=== PATIENT | male | born 1980 | race Hispanic/Latino ===

== ENCOUNTER 2018-12-31 17:32 | Emergency (ER) | payer OTHER ==
[~2018-12-31] VITALS: Ht 177.8 cm; Wt 70.3 kg
[~2018-12-31 17:32] MED LIST: LEVAQUIN500 MG PO
--- OUTSIDE RECORDS SUMMARY | 2018-12-31 17:36 | XMS REPORT ---
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 (14), Lipid Daly ... - Serology hepatitis C antibody, serum 0.2 0.0-0.9 Lab Report: CD4/CD8 Ratio Profile, Comp. Metabolic Panel (14), Lipid Daly ... - Chemistry absolute CD8 1432 512-874 4279/07/19 Absolute Neutrophils 2.1 X10E3/UL 10*3/uL 1.4-7.0 Lab Report: UA/M w/rflx Culture, Routine, Microscopic Examination, UA/M ... - Urinalysis bilirubin, urine Negative Negative Lab Report: CD4/CD8 Ratio Profile, Comp. Metabolic Panel (14), Lipid Daly ... - Chemistry estradiol, serum 31.8 pg/mL 7.6-42.6 LDL cholesterol, serum 56 mg/dL 0-99 Office Visit: Adult Followup #Tx1 - Lab Non-nucleotide Reverse Transcriptase Inhibitors K103N, P225PH Lab Report: CD4/CD8 Ratio Profile, Comp. Metabolic Panel (14), Lipid Daly ... - Chemistry albumin/globulin ratio, serum 1.0 1.2-2.2 cholesterol, serum 106 mg/dL 100-199 Lab Report: Chlamydia/GC Amplification - Lab chlamydia DNA probe Negative Negative Lab Report: UA/M w/rflx Culture, Routine, Microscopic Examination, UA/M ... - Urinalysis appearance, urine Clear Clear Lab Report: CD4/CD8 Ratio Profile, Comp. Metabolic Panel (14), Lipid Daly ... - Chemistry aspartate aminotransferase (SGOT), serum 33 U/L 0-40 Lab Report: CD4/CD8 Ratio Profile, Comp. Metabolic Panel (14), Lipid Daly ... - Hematology red blood cell distribution width 14.4 % 12.3-15.4 Lab Report: UA/M w/rflx Culture, Routine, Microscopic Examination, UA/M ... - Urinalysis urinalysis, microscopic examination MICRON Lab Report: CD4/CD8 Ratio Profile, Comp. Metabolic Panel (14), Lipid Daly ... - Chemistry immature granulocytes, percentage of total cells, blood 0 % Not Estab. 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 Metabolic Panel (14), Lipid Daly ... - Hematology hematocrit, blood 37.7 % 37.5-51.0 basophils as percent of blood leukocytes 0 % Not Estab. Lab Report: CD4/CD8 Ratio Profile, Comp. Metabolic Panel (14), Lipid Daly ... - Chemistry CD4/CD8 ratio 0.23 0.92-3.72 carbon dioxide, venous blood 23 mmol/L 20-29 Lab Report: UA/M w/rflx Culture, Routine, Microscopic Examination, UA/M ... - Chemistry nitrate, urine Negative Negative Lab Report: CD4/CD8 Ratio Profile, Comp. Metabolic Panel (14), Lipid Daly ... - Chemistry alanine aminotransferase (SGPT), serum 24 U/L 0-44 Lab Report: CD4/CD8 Ratio Profile, Comp. Metabolic Panel (14), Lipid Daly ... - Hematology mean corpuscular hemoglobin, RBC 30.1 pg 26.6-33.0 hemoglobin, blood 12.7 g/dL 13.0-17.7 T-suppressor cells (CD8) as percent of blood lymphocytes 68.2 % 12.0-35.5 Lab Report: UA/M w/rflx Culture, Routine, Microscopic Examination, UA/M ... - Urinalysis glucose, urine, semiquantitative Negative Negative Lab Report: CD4/CD8 Ratio Profile, Comp. Metabolic Panel (14), Lipid Daly ... - Hematology basophil count, absolute 0.0 x10E3/uL 0.0-0.2 Lab Report: CD4/CD8 Ratio Profile, Comp. Metabolic Panel (14), Lipid Daly ... - Chemistry testosterone, serum, free 4.8 pg/mL 8.7-25.1 Lab Report: CD4/CD8 Ratio Profile, Comp. Metabolic Panel (14), Lipid Daly ... - Hematology eosinophils as percent of blood leukocytes 1 % Not Estab. Lab Report: CD4/CD8 Ratio Profile, Comp. Metabolic Panel (14), Lipid Daly ... - Chemistry blood glucose, random 95 mg/dL 65-99 Lab Report: CD4/CD8 Ratio Profile, Comp. Metabolic Panel (14), Lipid Daly ... - Hematology T-helper cells (CD4) count 332 /UL uL 359-1519 Office Visit: Adult Followup #Tx1 - Lab Nucleotide Reverse transcriptase inhibitor none Lab Report: CD4/CD8 Ratio Profile, Comp. Metabolic Panel (14), Lipid Daly ... - Hematology platelet count 193 X10E3/UL 10*3/mm3 150-379 Lab Report: UA/M w/rflx Culture, Routine, Microscopic Examination, UA/M ... - Urinalysis ketones, urine, by test strip Negative Negative Encounters Date Encounter Provider Code Facility 16:23:56 CDT Est Patient Detailed - 90039 Shannan Roman MD CPT-26757 [facility] 16:06:31 CDT Est Patient Detailed - 28690 Shannan Roman MD CPT-87308 [facility] 09:35:12 [employer] Est Patient Detailed - 09864 Shannan Roman MD CPT-87035 [facility] 19:04:23 CDT Est Patient Detailed - 49494 Shannan Roman MD CPT-88710 [facility] 10:09:05 CDT Est Patient Exp Problem - 78838 Shannan Roman MD CPT-76202 [facility] 16:08:26 CDT Est Patient Detailed - 82590 Elaine Leos MD [facility]-79166 [facility] 17:07:13 [employer] Est Patient Exp Problem - 27589 Shannan Roman MD CPT-48184 [facility] 10:21:39 [employer] Est Patient Exp Problem - 16733 Shannan Roman MD CPT-39782 [facility] 16:45:41 [employer] Est Patient Exp Problem - 17928 Caleb Hopkins MD CPT-09600 [facility] 13:12:05 CDT Est Patient Exp Problem - 24312 Shannan Roman MD CPT-07027 [facility] 15:52:23 CDT Ofc Vst, Est Level III Elaine Leos MD CPT-77416 [facility] 11:21:35 CDT Ofc Vst, Est Level III Guillermo Schaeffer MD CPT-47764 [facility] 16:05:05 CDT Ofc Vst, Est Level III Shannan Roman MD CPT-14095 [facility] 14:58:12 CDT Ofc Vst, Est Level III Shannan Roman MD CPT-04334 [facility] 15:16:45 [employer] Ofc Vst, Est Level III Guillermo Schaeffer MD CPT-79664 [facility] 09:14:38 CDT Ofc Vst, Est Level III Shannan Roman MD CPT-73778 [facility] 12:54:41 CDT Ofc Vst, Est Level III Shannan Roman MD CPT-92619 [facility] 12:20:25 [employer] Ofc Vst, Est Level III Shannan Roman MD CPT-81548 [facility] 09:45:42 [employer] Ofc Vst, Est Level II Vivian Armstrong LVN CPT-92777 [facility] 13:02:37 CDT Ofc Vst, Est Level III Shannan Roman MD CPT-81787 [facility] 10:19:40 CDT Ofc Vst, Est Level II Vivian Armstrong PNEUMATIC TUBE OPERATOR CPT-74343 [facility] Procedures Code Procedure Name Date Entry Date Standard Description CPT-71505 Handling of specimen for transfer 16:06:32 CDT CPT-58645 Venipuncture 16:06:32 CDT CPT-HE001 Health Education/Supportive Counseling 10:50:41 CDT CPT-36245 Xray - Chest - PA & Lat - InHouse 08:28:27 CDT CPT-36090 INFLUENZA VACCINE QUADRIVALENT 3 YRS PLUS IM 19:04:24 CDT CPT-74935 Admin of Vaccine - Injection - 1 19:04:24 CDT CPT-09963 TDAP 17:07:24 [employer] CPT-15713 INFLUENZA VACCINE QUADRIVALENT 3 YRS PLUS IM 17:07:24 [employer] CPT-19539 Admin of Vaccine - Injection - Each Add'l 17:07:23 [employer] CPT-43917 Admin of Vaccine - Injection - 1 17:07:23 [employer] CPT-55163 Est Patient Intermediate Opt - 34909 13:50:39 CDT CPT-93023 Influenza - Adult - Injection 13:12:24 CDT CPT-63281 Admin of Vaccine - Injection - 1 13:12:24 CDT CPT-27496 Xray - Spine Thoracic - InHouse 14:35:47 CDT CPT-50570 Handling of specimen for transfer 10:04:23 CDT CPT-98746 Venipuncture 10:04:23 CDT CPT-88177 Dispensing Visit (UNLIVSTED OPHTHALMOLOGICAL SERVICE/PROCEDURE) 14:34:42 CDT CPT-87280 Est Patient Intermediate Opt - 87378 14:08:27 CDT CPT-76110 Est Patient Intermediate Opt - 53845 13:40:05 CDT CPT-77072 Influenza - Adult - Injection 16:05:05 CDT CPT-90135 Admin of Vaccine - Injection - 1 16:05:05 CDT CPT-30964 Handling of specimen for transfer 14:42:48 CDT CPT-12912 Venipuncture 14:42:48 CDT CPT-53374 Prevnar (PCV13) IM 14:58:42 CDT CPT-54794 Hepatitis B - Adult 14:58:42 CDT CPT-24018 Admin of Vaccine - Injection - Each Add'l 14:58:42 CDT CPT-80455 Admin of Vaccine - Injection - 1 14:58:42 CDT CPT-75211 Dispensing Visit (UNLIVSTED OPHTHALMOLOGICAL SERVICE/PROCEDURE) 14:04:04 [employer] CPT-28507 Est Patient Intermediate Opt - 16229 15:31:31 [employer] CPT-49751 Influenza - Adult - Injection 12:20:25 [employer] CPT-61541 Admin of Vaccine - Injection - 1 12:20:25 [employer]
--- OUTSIDE RECORDS SUMMARY | 2018-12-31 17:36 | XMS REPORT ---
Author Author [facility] Address Unknown Phone Unavailable Care Team Providers Care Billing Clinician Name Role Phone Unavailable Unavailable Payers Payer Name Policy Type Policy Number Effective Date Expiration Date Problems This patient has no known problems. Allergies, Adverse Reactions, Alerts Allergy Name Allergy Type Status Severity Reaction(s) Onset Date Inactive Date Treating Clinician Comments No Known Allergies DA Active U 2017-03-07 00:00:00 Medications This patient has no known medications. Results Test Description Test Time Test Comments Text Results Atomic Results Result Comments BASIC METABOLIC PANEL 2018-12-31 03:25:00 SODIUM (test code=NA) 141 mmol/L 136-145 POTASSIUM (test code=K) 3.7 mmol/L 3.5-5.1 CHLORIDE (test code=CL) 111.0 mmol/L 98-107 CARBON DIOXIDE (test code=CO2) 25.0 mmol/L 21-32 ANION GAP (test code=GAP) 8.7 10-20 GLUCOSE (test code=GLU) 120 mg/dL 74-106 BLOOD UREA NITROGEN (test code=BUN) 20 mg/dL 7-18 GLOMERULAR FILTRATION RATE (test code=GFR) > 60 mL/min >=60 Estimated GFR by using Modified MDRD formula.Chronic kidney disease is defined as either kidney damageor GFR <60 mL/min/1.73 m2 for >3 months. CREATININE (test code=CREAT) 1.10 mg/dL 0.7-1.3 BUN/CREATININE RATIO (test code=BUN/CREA) 18.3 10-20 CALCIUM (test code=CA) 7.4 mg/dL 8.5-10.1 BASIC METABOLIC [id number] 03:22:00* Test Item Value Reference Range Comments SODIUM (test code=NA) 141 mmol/L 136-145 POTASSIUM (test code=K) 3.7 mmol/L 3.5-5.1 CHLORIDE (test code=CL) 111.0 mmol/L 98-107 CARBON DIOXIDE (test code=CO2) mmol/L 21-32 ANION GAP (test code=GAP) 10-20 GLUCOSE (test code=GLU) mg/dL 74-106 BLOOD UREA NITROGEN (test code=BUN) mg/dL 7-18 GLOMERULAR FILTRATION RATE (test code=GFR) mL/min >=60 CREATININE (test code=CREAT) mg/dL 0.7-1.3 BUN/CREATININE RATIO (test code=BUN/CREA) 10-20 CALCIUM (test code=CA) mg/dL 8.5-10.1 CBC W/AUTO [id number] 03:06:00* Test Item Value Reference Range Comments WHITE BLOOD CELL (test code=WBC) 7.3 K/mm3 4.5-12.5 RED BLOOD CELL (test code=RBC) 3.46 mill/mm3 4.0-5.8 HEMOGLOBIN (test code=HGB) 8.9 gram/dL 13.0-17.5 HEMATOCRIT (test code=HCT) 29.5 % 42.0-52.0 MEAN CELL VOLUME (test code=MCV) 85.3 fL 80-98 MEAN CELL HGB (test code=MCH) 25.7 picogram 27.0-33.0 MEAN CELL HGB CONCETRATION (test code=MCHC) 30.2 gram/dL 33.0-36.0 RED CELL DISTRIBUTION WIDTH (test code=RDW) 13.2 % 11.6-16.2 RED CELL DISTRIBUTION WIDTH SD (test code=RDW-SD) 40.3 fL 37.0-51.0 PLATELET COUNT (test code=PLT) 264 K/mm3 150-450 MEAN PLATELET VOLUME (test code=MPV) 10.3 fL 6.7-11.0 NEUTROPHIL % (test code=NT%) 55.7 % 39.0-69.0 IMMATURE GRANULOCYTE % (test code=IG%) 0.4 % 0.0-5.0 LYMPHOCYTE % (test code=LY%) 36.9 % 25.0-55.0 MONOCYTE % (test code=MO%) 5.7 % 0.0-10.0 EOSINOPHIL % (test code=EO%) 0.8 % 0.0-5.0 BASOPHIL % (test code=BA%) 0.5 % 0.0-1.0 NUCLEATED RBC % (test code=NRBC%) 0.0 % 0-0 NEUTROPHIL # (test code=NT#) 4.07 K/mm3 1.8-7.7 IMMATURE GRANULOCYTE # (test code=IG#) 0.03 x10 3/uL 0-0.03 LYMPHOCYTE # (test code=LY#) 2.70 K/mm3 1.0-5.0 MONOCYTE # (test code=MO#) 0.42 K/mm3 0-0.8 EOSINOPHIL # (test code=EO#) 0.06 K/mm3 0.0-0.5 BASOPHIL # (test code=BA#) 0.04 K/mm3 0.0-0.2 NUCLEATED RBC # (test code=NRBC#) 0.00 K/mm3 0.0-0.1 MANUAL DIFF REQUIRED (test code=MDIFF) NO - MRI BRAIN W/O [id number] 23:23:00 FAX: Mahesh Carmichael MD [place]: B St: ADM Name: JAMAL WHYTE [facility] : [birth year] Age/S: 38/M [address] [facility] Unit #: [id number] Loc: [place] [address] Phys: Mahesh Carmichael MD Acct: [id number] Dis Date: Status: ADM IN PHONE #: [phone] Exam Date: 12/30/2018 1550 FAX #: [phone] Reason: hearing loss, dizziness, Hx of HIV r/o pml, EXAMS: CPT CODE: [id number] MRI BRAIN W/O CONTRAST 06826 EXAM: MRI scan of the brain without contrast; INFORMATION: Hearing loss, dizziness; mastoiditis; his tory of HIV; rule out PML; slightly impaired renal function; TECHNIQUE AND FINDINGS: Multiplanar, multisequence scans of the brain we re obtained including diffusion-weighted sequences; There is normal gonzales/white matter differentiation on all pulse sequences; diffusio n-weighted images show no areas of increased signal intensity. No evidence of mass lesions or midline shift. The gradient echo study shows no eviden ce of intra or extra-axial hemorrhage. Expected flow-voids are seen within vascular structures. The ventricles are symmetric and of normal janet meter; normal width of the basilar cisterns and sulci; IMP RESSION: Normal MRI scan of the brain; no evidence of PML. at 5785 Reported and signed by: Keith Goddard M.D. CC: Mahesh Carmihcael MD Technologist: Huy Palma(R)(MR) Trnscrd Date/Time/By: 12/30/2018 (5968) : By: AsiaGRW Orig Print D/T: S: 12/30/2018 (2217) PAGE 1 Signed Report PROCALCITONIN (PCT)2018-12-30 04:27:00* Test Item Value Reference Range Comments PROCALCITONIN (PCT) (test code=PROCAL) < 0.05 ng/ml Concentration Interpretation (ng/mL) <0.51 Sepsis is not likely. Local bacterial infection is possible. (LOW RISK for progression to Sepsis) 0.51 - 2.00 Sepsis is possible, but other conditions are known to elevate PCT as well. (MODERATE RISK for progression to Sepsis) > 2.00 Sepsis is likely, unless other causes are known. (HIGH RISK for progression to Severe Sepsis or Septic Shock) 10.00 High likelihood of Severe Sepsis or Septic or higher Shock. *Increased PCT levels may not always be related to systemic bacterial infection.*Low PCT levels do not automatically exclude the presence of bacterial infection.*All results should be interpreted taking into account the patients history. VITAMIN [id number] 04:21:00* Test Item Value Reference Range Comments VITAMIN B12 (test code=VITB12) 1618 pg/mL 193-986 FOLIC [id number] 04:21:00* Test Item Value Reference Range Comments FOLIC ACID (test code=FOL) 13.0 ng/mL 3.10-17.50 THYROID STIMULATING [id number] 04:21:00* Test Item Value Reference Range Comments THYROID STIMULATING HORMONE (test code=TSH) 0.215 uIU/mL 0.36-3.74 TSH REFERENCE RANGES: EUTHYROID: 0.35 - 4.3 mIU/mL HYPO : > 5.5 mIU/mL HYPER : < 0.35 mIU/mL [id number] 04:21:00* Test Item Value Reference Range Comments FERRITIN (test code=MOISE) 22 ng/mL 8-388 - CT HEAD/BRAIN W/O [id number] 22:55:00 Name: JAMAL NEAL [facility] : 1980 Age/S: 38 / M [address] [facility] Unit #: [id number] Loc: [place] [address] Phys: Ori Yap MD Acct: [id number] Dis Date: Status: REG ER PHONE #: [phone] Exam Date: 12/29/20185 FAX #: [phone] Reason: syncope EXAMS: CPT CODE: [id number] CT HEAD/BRAIN W/O CONT 97115 EXAM: CT of the head; INFORMATION: Headache; TECHNIQUE AND FINDINGS: CT dose reduction protocol; The ventricles are symmetric and of normal diameter; normal width of basilar cisterns and sulci; normal gonzales/white matter differentiation; no evidence of intra or extra-axial hemorrhage, mass lesion or midline shift. Bone windows show no abnormalities. There is mucosal swelling in the maxillary sinuses and the right sphenoid sinus. There is also mucosal swelling in the mastoid air cells and the left middle ear. Deviation of the nasal septum with convexity to the right. IMPRESSION: 1. Normal CT scan of the brain. 2. Sinusitis. 3. Mastoiditis and left otitis media. at 2255 Reported and signed by: Keith Goddard M.D. CC: Ori Yap MD Technologist:HERNAN REYES RT; JASMINA AT [facility]DI: DLP: Trnscb Date/Time: 12/29/2018 (327) AsiaGRW Orig Print D/T: S: 12/29/2018 (8132) PAGE 1 Signed Report URINALYSIS [id number] 22:06:00* Test Item Value Reference Range Comments UA COLOR (test code=COLU) YELLOW YELLOW UA APPEARANCE (test code=APPU) CLEAR CLEAR UA GLUCOSE DIPSTICK (test code=DGLUU) NEGATIVE mg/dL NEGATIVE UA BILIRUBIN DIPSTICK (test code=BILU) NEGATIVE mg/dL NEGATIVE UA KETONE DIPSTICK (test code=KETU) NEGATIVE mg/dL NEGATIVE UA SPECIFIC GRAVITY (test code=SGU) 1.036 1.001-1.035 UA BLOOD DIPSTICK (test code=DANIEL) Negative mg/dL NEGATIVE UA PH DIPSTICK (test code=YADY) 5.5 5.0-8.0 UA PROTEIN DIPSTICK (test code=PROU) 30 (1+) mg/dL NEGATIVE UA UROBILINIOGEN DIPSTICK (test code=URO) Normal mg/dL NEGATIVE UA NITRITE DIPSTICK (test code=ARAM) NEGATIVE NEGATIVE UA LEUKOCYTE ESTERASE W REFLEX (test code=LEUUR) NEGATIVE Elina/uL NEGATIVE UA WBC (test code=WBCU) 0-5 per HPF 0-5 UA RBC (test code=RBCU) 0-2 #/HPF 0-5 UA EPITHELIAL CELLS (test code=EPIU) FEW per HPF FEW UA BACTERIA (test code=BACU) NONE SEEN #/HPF NONE UA HYALINE CAST (test code=HYALU) 11-20 #/LPF 0-5 UA MUCUS (test code=MUCU) FEW #/LPF FEW Urine Source? Clean Catch- XR CHEST 1 [id number] 21:33:00 FAX: Asher Chandler [place]: B St: PRE Name: JAMAL WHYTE [facility] : [birth year] Age/S: 38/M [address] [facility]: [id number] Loc: [place] [address] Phys: Asher Chandler MD Acct: [id number] Dis Date: Status: PRE ER PHONE #: [phone] Exam Date: 12/29/20182104 FAX #: [phone] Reason: ABDOMINAL PAIN EXAMS: CPT CODE: [id number] XR CHEST 1 V 87859 EXAM: Chest X-ray, 1 view; CLINICAL HISTORY: Shortness of breath and abdominal pain; F INDINGS: Subtle patchy density above the left hemidiaphragm, lateral to th e apex of the heart; the remainder of the lungs is clear, no edema; no effusions; no pneumothorax; normal cardiomediastinal silhouette. IMPRESSION: Left basilar density which may represent a small infiltrate or potentially parenchymal scarring. at 3 Reported and signed by: Keith Goddard M.D. CC: Asher Chandler MD Technologist: TAYLOR BrunerR Trnscrd Date/Time/By: 12/29/2018 (2132) : By: AsiaGRW Orig Print D/T: S: 12/29/2018 (2135) PAGE 1 Signed Report BASIC METABOLIC PANEL 2018-12-29 21:26:00* Test Item Value Reference Range Comments SODIUM (test code=NA) 136 mmol/L 136-145 POTASSIUM (test code=K) 4.1 mmol/L 3.5-5.1 CHLORIDE (test code=CL) 104.0 mmol/L 98-107 CARBON DIOXIDE (test code=CO2) 26.0 mmol/L 21-32 ANION GAP (test code=GAP) 10.1 10-20 GLUCOSE (test code=GLU) 89 mg/dL 74-106 BLOOD UREA NITROGEN (test code=BUN) 27 mg/dL 7-18 GLOMERULAR FILTRATION RATE (test code=GFR) 57 mL/min >=60 Estimated GFR by using Modified MDRD formula.Chronic kidney disease is defined as either kidney damageor GFR <60 mL/min/1.73 m2 for >3 months. CREATININE (test code=CREAT) 1.40 mg/dL 0.7-1.3 BUN/CREATININE RATIO (test code=BUN/CREA) 19.3 10-20 CALCIUM (test code=CA) 8.3 mg/dL 8.5-10.1 HEPATIC FUNCTION [id number] 21:26:00* Test Item Value Reference Range Comments TOTAL PROTEIN (test code=PROT) 8.0 gram/dL 6.4-8.2 ALBUMIN (test code=ALB) 2.4 g/dL 3.4-5.0 GLOBULIN (test code=GLOB) 5.6 gram/dL 2.7-4.2 ALBUMIN/GLOBULIN RATIO (test code=A/G) 0.4 0.75-1.50 BILIRUBIN TOTAL (test code=BILT) 0.10 mg/dL 0.0-1.0 BILIRUBIN DIRECT (test code=BILD) < 0.05 mg/dL 0.0-0.20 SGOT/AST (test code=AST) 47 IUnit/L 15-37 SGPT/ALT (test code=ALT) 36 IUnit/L 12-78 ALKALINE PHOSPHATASE TOTAL (test code=ALKP) 86 IUnit/L 45-117 Note change in reference range due to change in reagent. [id number] 21:26:00* Test Item Value Reference Range Comments LIPASE (test code=LIP) 223 U/L 73.0-393.0 [id number] 21:26:00* Test Item Value Reference Range Comments TROPONIN-I (test code=TROPI) <0.015 ng/mL 0-0.045 CBC W/O [id number] 21:24:00* Test Item Value Reference Range Comments WHITE BLOOD CELL (test code=WBC) 9.1 K/mm3 4.5-12.5 RED BLOOD CELL (test code=RBC) 3.54 mill/mm3 4.0-5.8 HEMOGLOBIN (test code=HGB) 9.3 gram/dL 13.0-17.5 HEMATOCRIT (test code=HCT) 29.7 % 42.0-52.0 MEAN CELL VOLUME (test code=MCV) 83.9 fL 80-98 MEAN CELL HGB (test code=MCH) 26.3 picogram 27.0-33.0 MEAN CELL HGB CONCETRATION (test code=MCHC) 31.3 gram/dL 33.0-36.0 RED CELL DISTRIBUTION WIDTH (test code=RDW) 12.9 % 11.6-16.2 PLATELET COUNT (test code=PLT) 273 K/mm3 150-450 MEAN PLATELET VOLUME (test code=MPV) 10.7 fL 6.7-11.0 BASIC METABOLIC [id number] 21:09:00* Test Item Value Reference Range Comments SODIUM (test code=NA) 136 mmol/L 136-145 POTASSIUM (test code=K) 4.1 mmol/L 3.5-5.1 CHLORIDE (test code=CL) 104.0 mmol/L 98-107 CARBON DIOXIDE (test code=CO2) mmol/L 21-32 ANION GAP (test code=GAP) 10-20 GLUCOSE (test code=GLU) mg/dL 74-106 BLOOD UREA NITROGEN (test code=BUN) mg/dL 7-18 GLOMERULAR FILTRATION RATE (test code=GFR) mL/min >=60 CREATININE (test code=CREAT) mg/dL 0.7-1.3 BUN/CREATININE RATIO (test code=BUN/CREA) 10-20 CALCIUM (test code=CA) mg/dL 8.5-10.1 HEPATIC FUNCTION [id number] 21:09:00* Test Item Value Reference Range Comments TOTAL PROTEIN (test code=PROT) gram/dL 6.4-8.2 ALBUMIN (test code=ALB) g/dL 3.4-5.0 GLOBULIN (test code=GLOB) gram/dL 2.7-4.2 ALBUMIN/GLOBULIN RATIO (test code=A/G) 0.75-1.50 BILIRUBIN TOTAL (test code=BILT) mg/dL 0.0-1.0 BILIRUBIN DIRECT (test code=BILD) mg/dL 0.0-0.20 SGOT/AST (test code=AST) IUnit/L 15-37 SGPT/ALT (test code=ALT) IUnit/L 12-78 ALKALINE PHOSPHATASE TOTAL (test code=ALKP) IUnit/L 45-117 [id number] 21:09:00* Test Item Value Reference Range Comments LIPASE (test code=LIP) U/L 73.0-393.0 [id number] 21:09:00* Test Item Value Reference Range Comments TROPONIN-I (test code=TROPI) ng/mL 0-0.045
[2018-12-31] MEDS ORDERED: CEFDINIR300 MG PO (20:05)
[2019-01-01] MEDS ORDERED: OSELTAMIVIR PHOSPHATE 75 MG CAP PO SCH (09:00)
== END 2018-12-31 20:30 | disposition home or self-care (01) ==
LOC: FSED 17:32
DX: H92.03 Otalgia, bilateral (principal); F12.90 Cannabis use, unspecified, uncomplicated; B20 Human immunodeficiency virus [HIV] disease
CPT/HCPCS: 99282

== ENCOUNTER 2021-06-01 12:00 | Emergency (ER) | payer SELFPAY ==
[~2021-06-01] VITALS: Ht 177.8 cm; Wt 70.3 kg
[~2021-06-01 12:00] MED LIST changes: +CEFDINIR300 MG PO
[2021-06-01 12:54] LABS: BASOPHILS # (AUTO) 0.1 (0.0-0.1); BASOPHILS % 0.4 % (0.0-1.0); EOSINOPHILS # (AUTO) 0.1 (0.0-0.4); EOSINOPHILS % 0.9 % (0.0-6.0); HEMATOCRIT 23.7 % (38.2-49.6); LYMPHOCYTES # (AUTO) 0.9 (1.0-3.2); LYMPHOCYTES % 7.5 % (18.0-39.1); MEAN CORPUSCULAR HEMOGLOBIN 25.3 pg (28-32); MEAN CORPUSCULAR HGB CONC 29.5 g/dL (31-35); MEAN CORPUSCULAR VOLUME 85.6 fL (81-99); MONOCYTES # (AUTO) 0.8 (0.2-0.8); MONOCYTES % 6.8 % (4.4-11.3); NEUTROPHILS # (AUTO) 10.1 (2.1-6.9); NEUTROPHILS % 83.6 % (38.7-80.0); PLATELET COUNT 542 x10e3/uL (140-360); RED BLOOD COUNT 2.77 x10e6/uL (4.3-5.7); RED CELL DISTRIBUTION WIDTH 16.3 % (11.7-14.4)
[2021-06-01 13:18] LABS: ALBUMIN 2.3 g/dL (3.5-5.0); ALBUMIN/GLOBULIN RATIO 0.4 (0.8-2.0); ANION GAP 16.6 mmol/L (8-16); CALCIUM 9.5 mg/dL (8.4-10.2); CREATININE, SERUM 1.06 mg/dL (0.72-1.25); POTASSIUM 3.6 mmol/L (3.5-5.1)
[2021-06-01] MEDS ORDERED: SODIUM CHLORIDE 0.9% 250ML 250 ML IV ONE (13:30)
[2021-06-01 13:33] LABS: CLARITY,URINE CLOUDY (CLEAR); COLOR,URINE YELLOW (YELLOW)
[2021-06-01 13:34] LABS: KETONES,URINE NEGATIVE (NEGATIVE); LEUKOCYTE ESTERASE ,URINE 2+ (NEGATIVE); NITRITE,URINE NEGATIVE (NEGATIVE); PROTEIN,URINE DIPSTICK 2+ (NEGATIVE); URINE UROBILINOGEN 2 mg/dL (0.2 - 1)
[2021-06-01 13:54] LABS: AMORPHOUS SEDIMENT,URINE MODERATE (FEW); BACTERIA,URINE MANY /HPF; EPITHELIAL CELLS,URINE FEW /LPF; RBC,URINE >50 /HPF (0-5); WBC,URINE (MAN) >50 /HPF (0-5)
[2021-06-01] MEDS ORDERED: CEFTRIAXONE 1 GM in SODIUM CHLORIDE 0.9% 50ML 50 ML IV SCH (16:00)
== END 2021-06-01 18:40 | disposition home or self-care (01) ==
LOC: ER 12:13
DX: R31.9 Hematuria, unspecified (principal); N39.0 Urinary tract infection, site not specified; D64.9 Anemia, unspecified; R91.8 Other nonspecific abnormal finding of lung field
CPT/HCPCS: 36415; 74176; 80053; 81001; 85025; 86850; 86900; 86920; 87086; 87186; 99283; J0696; J7050; P9016

== ENCOUNTER 2022-02-20 17:50 | Emergency (ER) | payer SELFPAY ==
[~2022-02-20] VITALS: Ht 177.8 cm; Wt 52.2 kg
[2022-02-20] MEDS ORDERED: PREDNISONE50 MG PO (18:42)
[2022-02-20] MEDS ORDERED: ANAPROX DS550 MG PO (18:42)
== END 2022-02-20 19:20 | disposition home or self-care (01) ==
LOC: ER 18:02
DX: N64.4 Mastodynia (principal); B20 Human immunodeficiency virus [HIV] disease; Z79.899 Other long term (current) drug therapy; L92.3 Foreign body granuloma of the skin and subcutaneous tissue; F64.0 Transsexualism
CPT/HCPCS: 93005; 99282